=== PATIENT | female | born 1970 | race Caucasian/White ===

== ENCOUNTER 2016-12-29 11:03 | Emergency (ER) | payer MEDICAID ==
[~2016-12-29] VITALS: Ht 152.4 cm; Wt 59.1 kg
[2016-12-29] MEDS ORDERED: PROPARACAINE HCL 0.5% 15 ML OPHTHALMIC SOLUTION ONE (13:30)
[2016-12-29 13:38] VITALS: BP 131/92
== END 2016-12-29 13:54 | disposition home or self-care (01) ==
LOC: EMS 11:04
DX: H11.30 Conjunctival hemorrhage, unspecified eye (principal); I10 Essential (primary) hypertension
CPT/HCPCS: 99283

== ENCOUNTER 2021-07-06 11:30 | Emergency (ER) | payer MEDICAID ==
[~2021-07-06] VITALS: Ht 162.6 cm; Wt 70.5 kg
[2021-07-06 13:02] LABS: HEMATOCRIT 36.8 % (36-46); HEMOGLOBIN 12.5 g/dL (12.0-16.0); MEAN CORPUSCULAR HEMOGLOBIN 30.1 pg (26.0-34.0); MEAN CORPUSCULAR VOLUME 89 fL (80-100); PLATELET COUNT (AUTO) 215 K/uL (150-450); RED BLOOD CELL COUNT(AUTO) 4.16 MIL/uL (4.00-5.20); RED CELL DISTRIBUTION WIDTH 12.3 % (11.5-14.5)
[2021-07-06 13:11] LABS: CALCIUM, TOTAL 9.4 mg/dL (8.8-10.5); CREATININE 1.04 mg/dL (0.60-1.30); POTASSIUM 3.9 mmol/L (3.5-5.1)
[2021-07-06 13:25] LABS: BAND NEUTROPHILS % (MANUAL) 0 % (0-5)
[2021-07-06 13:26] LABS: EOSINOPHILS % (MANUAL) 6 % (1-6); LYMPHOCYTES % (MANUAL) 44 % (22-44); MONOCYTES % (MANUAL) 3 % (2-9); SEGMENTED NEUTROPHILS % 47 % (40-70)
[2021-07-06 13:45] LABS: COVID AG,FIA SOURCE NASOPHARYNGEAL
[2021-07-06 14:08] LABS: INFLUENZA TYPE A NEGATIVE FOR TYPE A (NEGATIVE); INFLUENZA TYPE B NEGATIVE FOR TYPE B (NEGATIVE)
[2021-07-06 14:29] VITALS: BP 148/98
== END 2021-07-06 14:33 | disposition home or self-care (01) ==
LOC: EMS 11:30
DX: J06.9 Acute upper respiratory infection, unspecified (principal); Z20.822 Contact with and (suspected) exposure to COVID-19
CPT/HCPCS: 80048; 85025; 87804; 99283

== ENCOUNTER 2021-12-26 13:07 | Emergency (ER) | payer MEDICAID ==
[~2021-12-26] VITALS: Ht 162.6 cm; Wt 68.2 kg
[2021-12-26 15:46] LABS: COVID AG,FIA SOURCE NASAL SWAB
[2021-12-26 15:49] LABS: BASOPHILS % (AUTO) 0.7 % (0.0-2.0); EOSINOPHILS % (AUTO) 10.9 % (1.0-6.0); HEMATOCRIT 36.2 % (36-46); HEMOGLOBIN 12.6 g/dL (12.0-16.0); LYMPHOCYTES # (AUTO) 1.3 K/uL (1.0-4.8); LYMPHOCYTES % (AUTO) 21.5 % (22.0-44.0); MEAN CORPUSCULAR HEMOGLOBIN 29.8 pg (26.0-34.0); MEAN CORPUSCULAR HGB CONC 34.8 G/dL (31.0-37.0); MEAN CORPUSCULAR VOLUME 86 fL (80-100); MONOCYTES # (AUTO) 0.5 K/uL (0.1-1.0); MONOCYTES % (AUTO) 8.1 % (2.0-9.0); NEUTROPHILS # (AUTO) 3.6 K/uL (1.8-7.7); NEUTROPHILS % (AUTO) 58.8 % (40.0-70.0); PLATELET COUNT (AUTO) 146 K/uL (150-450); RED BLOOD CELL COUNT(AUTO) 4.23 MIL/uL (4.00-5.20); RED CELL DISTRIBUTION WIDTH 13.3 % (11.5-14.5)
[2021-12-26 16:02] LABS: CALCIUM, TOTAL 9.3 mg/dL (8.8-10.5); CREATININE 1.17 mg/dL (0.60-1.30); POTASSIUM 3.7 mmol/L (3.5-5.1)
[2021-12-26 16:03] LABS: PROTHROMBIN TIME 10.3 SEC (9.4-11.6)
[2021-12-26 16:08] LABS: ALBUMIN 4.1 g/dL (3.4-5.0); BILIRUBIN,TOTAL 0.4 mg/dL (0.1-1.0); TOTAL PROTEIN, SERUM 7.9 g/dL (6.4-8.2)
[2021-12-26 16:09] LABS: INFLUENZA TYPE A NEGATIVE FOR TYPE A (NEGATIVE); INFLUENZA TYPE B NEGATIVE FOR TYPE B (NEGATIVE)
[2021-12-26 17:52] VITALS: BP 136/71
== END 2021-12-26 18:07 | disposition home or self-care (01) ==
LOC: EMS 13:07
DX: U07.1 COVID-19 (principal)
CPT/HCPCS: 71045; 80053; 84484; 85025; 85610; 85730; 87804; 93005; 99285; 36415-L1; 36415-TC

== ENCOUNTER 2024-04-14 16:07 | Emergency (ER) | payer MEDICAID ==
[~2024-04-14] VITALS: Ht 154.9 cm; Wt 47.0 kg
[2024-04-14 16:33] VITALS: BP 126/71; PULSE 72; RESP 18; TEMP 98.4
[2024-04-14] MEDS ORDERED: NAPR-1025 PO (20:15)
[2024-04-14] MEDS: KETOROLAC TROMETHAMINE 30 MG/ML VIAL IM ONE (20:32)
== END 2024-04-14 21:00 | disposition home or self-care (01) ==
LOC: EMS 16:07
DX: R51.9 Headache, unspecified (principal); Z98.890 Other specified postprocedural states
CPT/HCPCS: 99283; 96372; J1885

== ENCOUNTER 2025-04-21 14:12 | Emergency (ER) | payer MEDICAID ==
[~2025-04-21] VITALS: Ht 165.1 cm; Wt 70.0 kg
[~2025-04-21 14:12] MED LIST: NAPR-1196 PO
[2025-04-21 14:19] VITALS: TEMP 97.9
[2025-04-21] MEDS: IBUPROFEN 400 MG TABLET PO ONE (17:48)
[2025-04-21] MEDS: ACETAMINOPHEN 500 MG TABLET PO ONE (17:48)
[2025-04-21 18:59] VITALS: BP 140/89; PULSE 75; RESP 18; O2SAT 99
== END 2025-04-21 19:08 | disposition home or self-care (01) ==
LOC: EMS 14:12
DX: M25.561 Pain in right knee (principal); M79.89 Other specified soft tissue disorders; Z98.890 Other specified postprocedural states; Z79.899 Other long term (current) drug therapy
CPT/HCPCS: 93971; 99284; 73564-TC; Z7502; Z7610